=== PATIENT | female | born 1970 | race Caucasian/White ===

== ENCOUNTER 2016-11-16 13:50 | Observation (INO) | payer MEDICAID, OTHER ==
[~2016-11-16] VITALS: Ht 165.1 cm; Wt 55.9 kg
[~2016-11-16 13:50] MED LIST: IBUP-232 PO; OXYC-360 PO; PREN0.01 PO; ZOFR8TAB PO
[2016-11-16 14:00] VITALS: BP 139/62; PULSE 85; RESP 16; TEMP 98.2; O2SAT 100
[2016-11-16 14:04] LABS: MEAN CORPUSCULAR HGB CONC 29.2 % (32.0-36.0)
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
--- NOTE | 2016-11-16 14:20 | RADHPO ---
EXAM DATE/TIME: 11/16/2016 14:12 [facility] COMPARISON: No previous studies available for comparison. INDICATIONS : Chest pain today. MEDICAL HISTORY : None. SURGICAL HISTORY : None. ENCOUNTER: Initial ACUITY: 1 day PAIN SCORE: 8/10 LOCATION: Bilateral chest FINDINGS: PA and lateral views of the chest demonstrate a normal-sized cardiac silhouette. There is no effusion , consolidation, or pneumothorax. The bones and soft tissues demonstrate no acute abnormality. There is mild rightward convex curvature of the lumbar spine. CONCLUSION: No acute cardiopulmonary abnormality is identified. Luís Spence MD on November 16, 2016 at 14:18 Board Certified Radiologist. This report was verified electronically.
[2016-11-16 14:22] LABS: AUTOMATED NEUTROPHIL # 5.8 TH/MM3 (1.8-7.7); BASOPHIL # 0.1 TH/MM3 (0-0.2); BASOPHIL % 0.7 % (0.0-2.0); EOSINOPHIL # 0.2 TH/MM3 (0-0.4); EOSINOPHIL % 2.5 % (0.0-4.0); HEMATOCRIT 25.9 % (35.0-46.0); LYMPH % 24.5 % (9.0-44.0); LYMPHOCYTE # 2.2 TH/MM3 (1.0-4.8); MEAN CELL VOLUME 58.6 FL (80.0-100.0); MEAN CORPUSCULAR HEMOGLOBIN 17.1 PG (27.0-34.0); MONO % 8.8 % (0.0-8.0); NEUT % 63.5 % (16.0-70.0); PLATELET COUNT 652 TH/MM3 (150-450); RED BLOOD COUNT 4.42 MIL/MM3 (4.00-5.30); RED CELL DISTRIBUTION WIDTH 18.9 % (11.6-17.2); WHITE BLOOD COUNT 9.1 TH/MM3 (4.0-11.0)
[2016-11-16 14:24] LABS: HEMO FLAGS AUTO DIFF
[2016-11-16 14:29] LABS: CHLORIDE 108 MEQ/L (98-107); POTASSIUM 3.1 MEQ/L (3.5-5.1); SODIUM (NA) 143 MEQ/L (136-145)
[2016-11-16 14:32] LABS: ANION GAP 12 MEQ/L (5-15); BICARBONATE 23.1 MEQ/L (21.0-32.0); BLOOD UREA NITROGEN 12 MG/DL (7-18)
[2016-11-16 14:35] LABS: ALT (GPT) 17 U/L (10-53); AST (GOT) 12 U/L (15-37); GLOMERULAR FILTRATION RATE 91 ML/MIN (>89)
[2016-11-16 14:37] LABS: TOTAL BILIRUBIN ADULT 0.4 MG/DL (0.2-1.0)
[2016-11-16 14:38] LABS: ALKALINE PHOSPHATASE 62 U/L (45-117)
[2016-11-16 14:40] LABS: BETA HCG QUANT LESS THAN 1 MIU/ML (0-5)
[2016-11-16 14:45] LABS: KERATOCYTES 1+ (NORMAL); OVALOCYTES 1+ (NORMAL); TARGET CELLS 1+ (NORMAL)
[2016-11-16 14:46] LABS: SCAN/DIFF AUTO DIFF CONFIRMED
[2016-11-16] MEDS ORDERED: SODIUM CHLOR 0.9% 250 ML INJ 250 ML IV ONE (15:45)
[2016-11-16 15:55] VITALS: BP 126/72; PULSE 81; RESP 16; O2SAT 100
[2016-11-16] MEDS ORDERED: IRON SUCROSE 100 MG/5 ML VIAL IV PUSH ONE (16:00)
[2016-11-16] MEDS ORDERED: NITROGLYCERIN 2% OINT 1 GM PACKET TOPICAL ONE (16:00)
[2016-11-16] MEDS ORDERED: IRON SUCROSE INJ 100 MG in SODIUM CHLORIDE 0.9% INJ 100 ML IV ONE (16:15)
[2016-11-16] MEDS ORDERED: SODIUM CHLOR 0.9% 1000 ML INJ 1,000 ML IV SCH (16:33)
[2016-11-16] MEDS ORDERED: SODIUM CHLORIDE 0.9% FLUSH 10 ML FLUSH IV FLUSH PRN (16:45)
[2016-11-16] MEDS ORDERED: PANTOPRAZOLE SODIUM 40 MG VIAL IV PUSH ONE (16:45)
[2016-11-16] MEDS ORDERED: NALOXONE HCL 0.4 MG/ML AMP IV PRN (16:45)
[2016-11-16 17:57] VITALS: PULSE 69
[2016-11-16 18:03] LABS: FERRITIN 3 NG/ML (8-252)
[2016-11-16 20:00] VITALS: BP 108/63; PULSE 83; RESP 18; TEMP 98.5; O2SAT 100
[2016-11-16] MEDS ORDERED: POTASSIUM CHLORIDE 10 MEQ CONTROLLED RELEASE TAB PO ONE (20:00)
[2016-11-16 20:14] VITALS: PULSE 78
[2016-11-16] MEDS: SODIUM CHLORIDE 0.9% FLUSH 10 ML FLUSH IV FLUSH SCH (20:32)
[2016-11-16] MEDS ORDERED: DOCUSATE SODIUM 100 MG CAP PO PRN (20:45)
[2016-11-16] MEDS ORDERED: MAGNESIUM HYDROXIDE SUSP 30 ML CUP PO PRN (20:45)
[2016-11-16] MEDS ORDERED: ACETAMINOPHEN 325 MG TAB PO PRN (20:45)
[2016-11-16] MEDS ORDERED: CALCIUM CARBONATE 500 MG CHEWABLE TAB CHEW PRN (20:45)
[2016-11-16] MEDS ORDERED: ONDANSETRON HCL 4 MG/2 ML VIAL IV PRN (20:45)
[2016-11-16] MEDS ORDERED: ALUMINUM/MAGNESIUM/SIMETH 30 ML CUP PO PRN (20:45)
[2016-11-16 21:12] LABS: MEAN CORPUSCULAR HGB CONC 29.9 % (32.0-36.0)
[2016-11-16] MEDS: DOCUSATE SODIUM 50 MG/SENNA 8.6 MG TAB PO SCH (22:23)
[2016-11-16 23:19] LABS: TRANSFERRIN IRON PROFILE 408 MG/DL (200-360)
[2016-11-17] VITALS: BP 100/64; PULSE 68; RESP 18; TEMP 98.3; O2SAT 99
[2016-11-17 04:00] VITALS: BP 106/64; PULSE 77; RESP 18; TEMP 97.9; O2SAT 100
[2016-11-17] MEDS: PANTOPRAZOLE SODIUM 40 MG VIAL IV PUSH SCH ×2 (05:33→17:00)
[2016-11-17 06:19] LABS: CHLORIDE 111 MEQ/L (98-107); POTASSIUM 3.8 MEQ/L (3.5-5.1); SODIUM (NA) 143 MEQ/L (136-145)
[2016-11-17 06:39] LABS: ALT (GPT) 13 U/L (10-53); ANION GAP 10 MEQ/L (5-15); AST (GOT) 13 U/L (15-37); BICARBONATE 22.2 MEQ/L (21.0-32.0); BLOOD UREA NITROGEN 11 MG/DL (7-18); GLOMERULAR FILTRATION RATE 123 ML/MIN (>89); TOTAL BILIRUBIN ADULT 0.4 MG/DL (0.2-1.0)
[2016-11-17 06:40] LABS: ALKALINE PHOSPHATASE 51 U/L (45-117)
[2016-11-17 06:43] LABS: AUTOMATED NEUTROPHIL # 4.5 TH/MM3 (1.8-7.7); BASOPHIL # 0.1 TH/MM3 (0-0.2); EOSINOPHIL # 0.4 TH/MM3 (0-0.4); EOSINOPHIL % 5.3 % (0.0-4.0); HEMATOCRIT 23.1 % (35.0-46.0); LYMPH % 28.4 % (9.0-44.0); LYMPHOCYTE # 2.2 TH/MM3 (1.0-4.8); MEAN CELL VOLUME 59.1 FL (80.0-100.0); MEAN CORPUSCULAR HEMOGLOBIN 17.7 PG (27.0-34.0); MONO % 9.3 % (0.0-8.0); PLATELET COUNT 525 TH/MM3 (150-450); RED CELL DISTRIBUTION WIDTH 19.4 % (11.6-17.2); WHITE BLOOD COUNT 7.9 TH/MM3 (4.0-11.0)
[2016-11-17 06:47] LABS: HEMO FLAGS AUTO DIFF
[2016-11-17 07:14] LABS: ACANTHOCYTES OCC (NORMAL); KERATOCYTES OCC (NORMAL); OVALOCYTES 1+ (NORMAL); PLATELET ESTIMATE SMEAR HIGH (NORMAL); PLATELET MORPHOLOGY NORMAL (NORMAL); ROULEAUX PRESENT (NORMAL); SCAN/DIFF AUTO DIFF CONFIRMED
[2016-11-17 08:00] VITALS: BP 115/66; PULSE 74; RESP 16; TEMP 97; O2SAT 95
[2016-11-17] MEDS: DOCUSATE SODIUM 50 MG/SENNA 8.6 MG TAB PO SCH ×2 (08:21→21:27)
[2016-11-17] MEDS: SODIUM CHLORIDE 0.9% FLUSH 10 ML FLUSH IV FLUSH SCH ×2 (08:22→21:00)
[2016-11-17 09:46] LABS: REVIEW FLAG FINAL
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
[2016-11-17] MEDS ORDERED: FERR325T PO (10:33)
[2016-11-17] MEDS ORDERED: PERI8.6T PO (10:33)
--- NOTE | 2016-11-17 10:33 | HHI.DCPOC ---
Discharge Care Plan Diagnosis: (1) Anemia (2) Chest pain Your Health Problems Are: Difficulty with ADL Exercise Tolerance Goals to Promote Your Health * To prevent worsening of your condition and complications * To maintain your health at the optimal level Directions to Meet Your Goals Take your medications as prescribed Follow your dietary instruction Follow activity as directed Keep your appointments as scheduled Take your immunizations and boosters as scheduled If your symptoms worsen call your PCP, if no PCP go to Urgent Care Center or Emergency Room Smoking is Dangerous to Your Health. Avoid second hand smoke Call the 24-hour hour crisis hotline for domestic abuse at Wagner Ribera MD Nov 17, 2016 10:33
[2016-11-17 12:00] VITALS: BP 103/67; PULSE 80; RESP 16; TEMP 97; O2SAT 95
--- NOTE | 2016-11-17 13:41 | RADHPO ---
EXAM DATE/TIME: 11/17/2016 11:56 [facility] COMPARISON: No previous studies available for comparison. INDICATIONS : Fibroids. MEDICAL HISTORY : Dyspnea. Uterine fibroids. Anemia. SURGICAL HISTORY : section. ENCOUNTER: Initial ACUITY: 1 day PAIN SCORE: 1/10 LOCATION: Bilateral pelvis MEASUREMENTS: UTERUS: 10.6 x 4.9 x 6.1 cm ENDOMETRIAL STRIPE: Not adequately visualized RIGHT OVARY: 2.7 x 1.4 x 1.4 cm LEFT OVARY: 2.6 x 2.9 x 3.5 cm FINDINGS: Patient declined transvaginal examination. UTERUS: Mildly enlarged uterus with heterogeneous echotexture of the myometrium in the fundal aspect. There i s a hypoechoic area in the fundal aspect measuring approximately 3.5 x 2.5 x 2.6 cm. This area demons trates mild increased blood flow. This structure is not seen as distinct from the endometrium and the endometrium is not well-visualized. RIGHT OVARY: Ovary contains no mass or significant cystic lesion. LEFT OVARY: There is a mildly complex cystic lesion measuring 2.6 x 1.9 x 2.3 cm. MISCELLANEOUS: No free fluid. CONCLUSION: 1. Mildly enlarged and very heterogeneous uterus. The endometrium is not clearly visualized. There is a poorly delineated hypoechoic masslike area in the mid fundus measuring up to 3.5 cm. This could re present an endometrial or myometrial mass (submucosal fibroid). An endovaginal ultrasound examination may offer additional characterization but patient declined at this time. Suggest correlation for any abnormal bleeding. MRI or endovaginal ultrasound would likely offer additional characterization, if desired. 2. The left ovary contains a complex cystic lesion measuring up to 2.6 cm. Internal architecture sugg ested this may represent a hemorrhagic cyst. Suggest followup imaging to confirm resolution. Luís Spence MD on November 17, 2016 at 13:35 Board Certified Radiologist. This report was verified electronically.
[2016-11-17 16:00] VITALS: BP 94/67; PULSE 85; RESP 16; TEMP 98.1; O2SAT 100
[2016-11-17] MEDS ORDERED: IRON SUCROSE INJ 100 MG in SODIUM CHLORIDE 0.9% INJ 100 ML IV ONE (16:15)
--- NOTE | 2016-11-17 17:22 | EKG ---
Date Performed: 11/16/2016 Time Performed: 13:50:04 PTAGE: 45 years EKG: Sinus rhythm Extensive ST-T changes are nonspecific Borderline ECG NO PREVIOUS TRACING DOCTOR: Jose De Jesus Peña Interpretating Date/Time 11/17/2016 17:21:02
[2016-11-17 20:00] VITALS: BP 113/78; PULSE 68; PULSE 94; RESP 20; TEMP 98.8; O2SAT 100
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
[2016-11-18] VITALS: BP 94/68; PULSE 74; RESP 20; TEMP 98.6; O2SAT 99
[2016-11-18] MEDS: PANTOPRAZOLE SODIUM 40 MG VIAL IV PUSH SCH (02:31)
[2016-11-18 04:00] VITALS: BP 104/64; PULSE 68; RESP 20; TEMP 98.2; O2SAT 100
[2016-11-18 06:54] LABS: AUTOMATED NEUTROPHIL # 5.3 TH/MM3 (1.8-7.7); BASOPHIL # 0.1 TH/MM3 (0-0.2); BASOPHIL % 0.7 % (0.0-2.0); EOSINOPHIL # 0.5 TH/MM3 (0-0.4); LYMPH % 23.6 % (9.0-44.0); MEAN CELL VOLUME 58.7 FL (80.0-100.0); MEAN CORPUSCULAR HEMOGLOBIN 18.1 PG (27.0-34.0); MEAN CORPUSCULAR HGB CONC 30.8 % (32.0-36.0); MONO % 8.6 % (0.0-8.0); NEUT % 61.1 % (16.0-70.0); PLATELET COUNT 538 TH/MM3 (150-450); RED BLOOD COUNT 4.09 MIL/MM3 (4.00-5.30); RED CELL DISTRIBUTION WIDTH 18.9 % (11.6-17.2); WHITE BLOOD COUNT 8.6 TH/MM3 (4.0-11.0)
[2016-11-18 07:01] LABS: APTT (PATIENT) 24.7 SEC (24.3-30.1); PROTHROMBIN TIME - PATIENT 11.1 SEC (9.8-11.6)
[2016-11-18 07:10] LABS: HEMO FLAGS AUTO DIFF
[2016-11-18 07:50] LABS: ACANTHOCYTES OCC (NORMAL); KERATOCYTES 1+ (NORMAL); OVALOCYTES 1+ (NORMAL); PLATELET ESTIMATE SMEAR LOW (NORMAL); PLATELET MORPHOLOGY NORMAL (NORMAL); SCAN/DIFF AUTO DIFF CONFIRMED
[2016-11-18 08:00] VITALS: BP 100/68; PULSE 76; RESP 16; TEMP 98.3; O2SAT 99
[2016-11-18] MEDS ORDERED: HYDR1CAP30 PO (08:30)
[2016-11-18] MEDS ORDERED: hydrOXYzine PAMOATE 25 MG CAP PO PRN (08:30)
--- NOTE | 2016-11-18 08:35 | HHI.PR ---
Subjective Remarks F/u cp. 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 Still hesitating doing stress test. States she will have it done outpatient including follow-up with [facility] regarding abnormal pelvic sonogram history of fibroids. Denies dizziness. She has been ambulating. Seen with RN Objective Vitals Vital Signs Date Time Temp Pulse Resp B/P Pulse Ox O2 Delivery O2 Flow Rate FiO2 11/18/16 04:00 98.2 68 20 104/64 100 11/18/16 00:00 98.6 74 20 94/68 99 11/17/16 20:00 68 11/17/16 20:00 98.8 94 20 113/78 100 11/17/16 16:00 98.1 85 16 94/67 100 11/17/16 12:00 97.0 80 16 103/67 95 I/O 11/17/16 11/17/16 11/17/16 11/18/16 11/18/16 11/18/16 07:00 15:00 23:00 07:00 15:00 23:00 Intake Total 240 ml 960 ml 0 ml Output Total 0 ml Balance 240 ml 960 ml 0 ml Intake Oral 240 ml 960 ml 0 ml Output Urine Total 0 ml # Voids 4 8 # Bowel Movements 0 0 0 Result Diagram: 11/18/16 0605 11/17/16 0550 Imaging Last Impressions Pelvis Ultrasound 11/17/16 0000 Signed Impressions: Service Date/Time: November 11:56 - CONCLUSION: 1. Mildly enlarged and very heterogeneous uterus. The endometrium is not clearly visualized. There is a poorly delineated hypoechoic masslike area in the mid fundus measuring up to 3.5 cm. This could represent an endometrial or myometrial mass (submucosal fibroid). An endovaginal ultrasound examination may offer additional characterization but patient declined at this time. Suggest correlation for any abnormal bleeding. MRI or endovaginal ultrasound would likely offer additional characterization, if desired. 2. The left ovary contains a complex cystic lesion measuring up to 2.6 cm. Internal architecture suggested this may represent a hemorrhagic cyst. Suggest followup imaging to confirm resolution. Luís Spence MD Chest X-Ray 11/16/16 0000 Signed Impressions: Service Date/Time: Wednesday, November 16, 2016 14:12 - CONCLUSION: No acute cardiopulmonary abnormality is identified. Luís Spence MD Objective Remarks GENERAL: This is a well-nourished, well-developed patient, in no apparent distress. SKIN: No rashes, ecchymoses or lesions. Cool and dry. HEAD: Atraumatic. Normocephalic. No temporal or scalp tenderness. EYES: Pupils equal round and reactive. Extraocular motions intact. No scleral icterus. No injection or drainage. Pale conjunctiva ENT: Nose without bleeding, purulent drainage or septal hematoma. Throat without erythema, tonsillar hypertrophy or exudate. Uvula midline. Airway patent. NECK: Trachea midline. No JVD or lymphadenopathy. Supple, nontender, no meningeal signs. CARDIOVASCULAR: Regular rate and rhythm without murmurs, gallops, or rubs. RESPIRATORY: Clear to auscultation. Breath sounds equal bilaterally. No wheezes , rales, or rhonchi. GASTROINTESTINAL: Abdomen soft, non-tender, nondistended. No guarding. MUSCULOSKELETAL: Extremities without clubbing, cyanosis, or edema. No joint tenderness, effusion, or edema noted. No calf tenderness. Negative Homans sign bilaterally. NEUROLOGICAL: Awake and alert. Cranial nerves II through XII intact. Motor and sensory grossly within normal limits. Five out of 5 muscle strength in all muscle groups. Normal speech. Procedures none A/P Problem List: (1) Anemia ICD Code: D64.9 Status: Acute (2) Chest pain ICD Code: R07.9 Status: Acute Assessment and Plan This is a 45-year-old female who presents to the emergency department complaining of left-sided chest pain associated with tingling of the left upper extremity and shortness of breath. She has abnormal EKG. She also reports of dizziness with hemoglobin of 6.9 Acute symptomatic microcytic anemia. Iron studies indicate iron deficiency. She continues to refuse blood transfusion but agrees with IV iron which she received 2. Consulted hematology and recommended iron pills and cleared for discharge. She also has history of heavy menses. History of fibroids. Pelvic sonogram results discussed with patient aware she needs [facility] follow-up. Hemoccult stools Atypical chest pain with abnormal EKG tracing interpreted by me with flipped T' s in the inferior leads and extensive ST depression. Ruled out for NH with negative cardiac enzymes. Chest x-ray image interpreted by me with no acute cardiopulmonary disease. Hold aspirin secondary to severe anemia. Patient recommended to undergo nuclear stress test, patient undecided at this time. This is likely secondary to anxiety. Trial of Vistaril Low risk for DVT Discharge Planning Discharge patient to home if symptom free Condition on discharge: Improved Regular Diet as tolerated Ad Sara activity no driving Rx written: Vistaril, Iron and Jacque-Colace Follow-up with primary care physician in one week, [facility]ology Wagner Ribera MD Nov 18, 2016 08:35
== END 2016-11-18 09:15 | disposition home or self-care (01) ==
LOC: PHED 13:50 → PHEDA 15:41 → INTOOBSV 15:41 → PH3A 17:49
PROVIDERS: ADMIT Internal Medicine; ATTEND Internal Medicine
DX: R07.89 Other chest pain (principal); R94.31 Abnormal electrocardiogram [ECG] [EKG]; D50.9 Iron deficiency anemia, unspecified; Z82.49 Family history of ischemic heart disease and other diseases of the circulatory system
CPT/HCPCS: 71020; 76856; 80053; 82728; 83540; 83550; 83735; 84484; 84702; 85025; 85044; 85379; 85610; 85730; 86850; 86900; 86901; 86920; 93005; 99285; C9113; G0378; J1756; J7030

== ENCOUNTER 2017-06-01 09:42 | Emergency (ER) | payer SELFPAY ==
[~2017-06-01] VITALS: Ht 160 cm; Wt 56.5 kg
[~2017-06-01 09:42] MED LIST changes: +FERR325T PO; +HYDR1CAP30 PO; -IBUP-232 PO; -OXYC-360 PO; +PERI8.6T PO; -PREN0.01 PO; -ZOFR8TAB PO
[2017-06-01] MEDS ORDERED: GADODIAMIDE PF 287 MG/ML 10 ML VIAL (for RAD MRI) IVCONTRAST ONE (09:43)
[2017-06-01] MEDS ORDERED: SODIUM CHLOR 0.9% 1000 ML INJ 1,000 ML IV SCH (10:00)
[2017-06-01 10:03] VITALS: BP 137/74; PULSE 77; RESP 16; TEMP 98.1; O2SAT 100
--- NOTE | 2017-06-01 10:04 | PD ---
HPI Chief Complaint: left-sided facial twitching Time Seen by Provider: 09:59 Travel History International Travel<30 days: No Contact w/Intl Traveler<30days: No Traveled to known affect area: No History of Present Illness HPI This 46-year-old female says that for the past 2 weeks she's been having some trouble swallowing. She says liquids and solids are affected equally. She has been able to swallow but it is difficult for her. Today she had twitching on the left side of her face which lasted for about 20 minutes. It was associated with clenching of her jaw There is no movement of the arms and the legs. There was no loss of consciousness. There is no incontinence. She has not been having headaches. She had blood work recently that showed she had elevated antibodies to the thyroid and was thought she might have Vale's. She has an appointment on Monday with a specialist. She is not having pain. She has not suffered headache. There is no history of tic douloureux PFSH Past Medical History Anxiety: Yes Heart Rhythm Problems: No Cancer: No Cardiovascular Problems: Yes Chest Pain: Yes (2 days intermittently) Diminished Hearing: No Genitourinary: No Musculoskeletal: No Neurologic: No Reproductive: No Respiratory: Yes : 2 Para: 2 Past Surgical History Section: Yes (X's 2) Gynecologic Surgery: Yes (2 c sections) Social History Alcohol Use: No Tobacco Use: No Substance Use: No Allergies-Medications (Allergen,Severity, Reaction): Coded Allergies: No Known Allergies (Verified , 06/01/17) Reported Meds & Prescriptions Reported Meds & Active Scripts Active Review of Systems General / Constitutional: No: Fever, Chills Eyes: No: Diploplia, Blurred Vision HENT: No: Headaches, Vertigo Cardiovascular: No: Chest Pain or Discomfort, Palpitations Respiratory: No: Cough, Shortness of Breath Gastrointestinal: Positive: Dysphagia, No: Nausea, Vomiting Genitourinary: No: Urgency, Frequency Musculoskeletal: No: Myalgias, Arthralgias Skin: No Rash Neurologic: Positive: Focal Abnormalities, No: Weakness, Dizziness, Syncope, Headache, Slurred Speech Hematologic/Lymphatic: No: Easy Bruising Physical Exam Narrative GENERAL: Well-developed female SKIN: Focused skin assessment warm/dry. HEAD: Atraumatic. Normocephalic. EYES: Pupils equal and round. No scleral icterus. No injection or drainage. ENT: No nasal bleeding or discharge. Mucous membranes pink and moist. NECK: Trachea midline. No JVD. CARDIOVASCULAR: Regular rate and rhythm. No murmur appreciated. RESPIRATORY: No accessory muscle use. Clear to auscultation. Breath sounds equal bilaterally. GASTROINTESTINAL: Abdomen soft, non-tender, nondistended. Hepatic and splenic margins not palpable. MUSCULOSKELETAL: No obvious deformities. No clubbing. No cyanosis. No edema. NEUROLOGICAL: Awake and alert. No obvious cranial nerve deficits. Motor grossly within normal limits. Normal speech. When asked to show her teeth she does have some twitching on the left side of her face. On extending her tongue the tip deviates to the right PSYCHIATRIC: Appropriate mood and affect; insight and judgment normal. Data Data Last Documented VS Vital Signs Date Time Temp Pulse Resp B/P (MAP) Pulse Ox O2 Delivery O2 Flow Rate FiO2 06/01/17 11:59 74 16 124/72 (89) 100 Room Air 06/01/17 10:03 98.1 Orders Orders Complete Blood Count With Diff (06/01/17 09:59) Comprehensive Metabolic Panel (06/01/17 09:59) Thyroid Stimulating Hormone (06/01/17 09:59) Mri Brain W&W/O Contrast (06/01/17 09:59) Sodium Chlor 0.9% 1000 Ml Inj (Ns 1000 M (06/01/17 10:00) Gadodiamide Pf Inj (Omniscan Pf Inj) (06/01/17 09:43) Labs Laboratory Tests Test 06/01/17 10:20 White Blood Count 8.3 TH/MM3 Red Blood Count 4.77 MIL/MM3 Hemoglobin 11.5 GM/DL Hematocrit 35.7 % Mean Corpuscular Volume 74.8 FL Mean Corpuscular Hemoglobin 24.0 PG Mean Corpuscular Hemoglobin Concent 32.2 % Red Cell Distribution Width 13.6 % Platelet Count 353 TH/MM3 Mean Platelet Volume 8.0 FL Neutrophils (%) (Auto) 62.3 % Lymphocytes (%) (Auto) 25.0 % Monocytes (%) (Auto) 7.3 % Eosinophils (%) (Auto) 4.6 % Basophils (%) (Auto) 0.8 % Neutrophils # (Auto) 5.1 TH/MM3 Lymphocytes # (Auto) 2.1 TH/MM3 Monocytes # (Auto) 0.6 TH/MM3 Eosinophils # (Auto) 0.4 TH/MM3 Basophils # (Auto) 0.1 TH/MM3 CBC Comment AUTO DIFF Differential Comment AUTO DIFF CONFIRMED Ovalocytes 1+ Blood Urea Nitrogen 13 MG/DL Creatinine 0.69 MG/DL Random Glucose 105 MG/DL Total Protein 8.0 GM/DL Albumin 4.1 GM/DL Calcium Level 8.7 MG/DL Alkaline Phosphatase 65 U/L Aspartate Amino Transf (AST/SGOT) 19 U/L Alanine Aminotransferase (ALT/SGPT) 17 U/L Total Bilirubin 0.4 MG/DL Sodium Level 136 MEQ/L Potassium Level 3.5 MEQ/L Chloride Level 103 MEQ/L Carbon Dioxide Level 25.1 MEQ/L Anion Gap 8 MEQ/L Estimat Glomerular Filtration Rate 92 ML/MIN Thyroid Stimulating Hormone 3rd Gen 6.440 uIU/ML MDM Medical Decision Making Medical Screen Exam Complete: Yes Emergency Medical Condition: Yes Medical Record Reviewed: Yes Differential Diagnosis Differential includes focal seizure, facial dystonia, CVA Narrative Course An MRI was obtained to assess for possible tumor or other etiology of focal seizures. On the MRI there are a few tiny scattered high signal spots in the white matter tracks bilaterally which is nonspecific the scene with demyelinating process such as multiple sclerosis. He is needs to be correlated with patient's physical exam and laboratory values. TSH here is elevated. The patient does have follow-up with a thyroid specialist. I have discussed the case with Dr. Chou who is agreed to see the patient in outpatient follow-up. No medications will be prescribed Diagnosis Primary Impression: Facial spasm Referrals: Afsaneh Chou MD Departure Forms: Tests/Procedures Additional Instructions: Return as needed Scripts No Active Prescriptions or Reported Meds Disposition: 01 DISCHARGE HOME Condition: Stable Silviano Espinosa MD Jun 01, 2017 10:04
[2017-06-01 10:27] LABS: AUTOMATED NEUTROPHIL # 5.1 TH/MM3 (1.8-7.7); BASOPHIL # 0.1 TH/MM3 (0-0.2); BASOPHIL % 0.8 % (0.0-2.0); EOSINOPHIL # 0.4 TH/MM3 (0-0.4); EOSINOPHIL % 4.6 % (0.0-4.0); HEMATOCRIT 35.7 % (35.0-46.0); HEMOGLOBIN 11.5 GM/DL (11.6-15.3); LYMPHOCYTE # 2.1 TH/MM3 (1.0-4.8); MEAN CELL VOLUME 74.8 FL (80.0-100.0); MEAN CORPUSCULAR HGB CONC 32.2 % (32.0-36.0); MONO % 7.3 % (0.0-8.0); MONOCYTE # 0.6 TH/MM3 (0-0.9); NEUT % 62.3 % (16.0-70.0); PLATELET COUNT 353 TH/MM3 (150-450); RED BLOOD COUNT 4.77 MIL/MM3 (4.00-5.30); RED CELL DISTRIBUTION WIDTH 13.6 % (11.6-17.2); WHITE BLOOD COUNT 8.3 TH/MM3 (4.0-11.0)
[2017-06-01 10:36] LABS: CHLORIDE 103 MEQ/L (98-107); SODIUM (NA) 136 MEQ/L (136-145)
[2017-06-01 10:39] LABS: CALCIUM 8.7 MG/DL (8.5-10.1)
[2017-06-01 10:40] LABS: ALBUMIN 4.1 GM/DL (3.4-5.0); BICARBONATE 25.1 MEQ/L (21.0-32.0); BLOOD UREA NITROGEN 13 MG/DL (7-18); GLUCOSE,RANDOM 105 MG/DL (74-106)
[2017-06-01 10:43] LABS: ALT (GPT) 17 U/L (10-53); AST (GOT) 19 U/L (15-37); CREATININE 0.69 MG/DL (0.50-1.00); GLOMERULAR FILTRATION RATE 92 ML/MIN (>89)
[2017-06-01 10:44] LABS: TOTAL BILIRUBIN ADULT 0.4 MG/DL (0.2-1.0)
[2017-06-01 10:46] LABS: ALKALINE PHOSPHATASE 65 U/L (45-117)
[2017-06-01 11:03] LABS: OVALOCYTES 1+ (NORMAL)
[2017-06-01 11:59] VITALS: BP 124/72; PULSE 74; RESP 16; O2SAT 100
--- NOTE | 2017-06-01 12:37 | RADRPT ---
EXAM DATE/TIME: 06/01/2017 11:41 [facility] COMPARISON: No previous studies available for comparison. INDICATIONS : Seizures. Twitching of left side of face for one day. CONTRAST: 10 cc Omniscan (gadodiamide) IV MEDICAL HISTORY : Anemia. SURGICAL HISTORY : section. ENCOUNTER: Initial ACUITY: 1 day PAIN SCORE: 0/10 LOCATION: Head. TECHNIQUE: Multiplanar, multisequence MRI of the brain was performed both prior to and following the administrat ion of paramagnetic contrast. FINDINGS: CEREBRUM: The ventricles are normal for age. No evidence of midline shift, mass lesion, hemorrhage or acute in farction. No extraaxial fluid collections are seen. The pituitary gland and suprasellar cistern are normal in configuration. WHITE MATTER: There are few high signal spot in the white matter tracks of the frontal parietal area bilaterally. This is nonspecific. POSTERIOR FOSSA: The cerebellum and brainstem are intact. The 4th ventricle is midline. The cerebellopontine angle is unremarkable. The cerebellar tonsils are normal in position. DIFFUSION IMAGING: No focal areas of restricted diffusion are seen. No evidence of acute infarction. EXTRACRANIAL: The visualized portions of the orbits and paranasal sinuses are unremarkable. POST-CONTRAST: No abnormal areas of parenchymal or dural enhancement. No evidence of blood-brain barrier breakdown. CONCLUSION: There are a few tiny scattered high signal spots in the white matter tracks bilaterally which are non specific. This can be seen with a demyelinating process such as multiple sclerosis. This needs to be correlated with patient's physical, clinical exam and laboratory values. Recommend followup MRI in 6 months to check stability.. Mu Paige MD on June 01, 2017 at 12:22 Board Certified Radiologist. This report was verified electronically.
[2017-06-01 12:59] VITALS: BP 112/73; PULSE 82; RESP 16; O2SAT 100
== END 2017-06-01 13:06 | disposition home or self-care (01) ==
LOC: PHED 09:42
DX: G51.3 Clonic hemifacial spasm (principal)
CPT/HCPCS: 70553; 80053; 84443; 85025; 96360; 96361; 99285; A9579; J7030